=== PATIENT | male | born 1955 | race Caucasian/White ===

== ENCOUNTER 2016-11-22 20:22 | Emergency (ER) | payer BC, MEDICARE ==
[~2016-11-22] VITALS: Ht 177.8 cm; Wt 92.0 kg
[~2016-11-22 20:22] MED LIST: LEVE10007 PO; LISI5TAB7 PO; METF500T4 PO; TRAZ50TA18 PO
[2016-11-22 20:29] VITALS: BP 123/77
[2016-11-22] MEDS ORDERED: LIDOCAINE 1%, 20ML ONE (21:55)
[2016-11-22] MEDS ORDERED: LIDOCAINE 1%, 20ML SQ ONE (22:00)
[2016-11-22] MEDS ORDERED: BACITRACIN ZINC OINT 500U/GM, 0.9 GM ONE (23:13)
== END 2016-11-22 23:44 | disposition home or self-care (01) ==
LOC: ED 23:38
DX: S91.204A Unspecified open wound of right lesser toe(s) with damage to nail, initial encounter (principal); I10 Essential (primary) hypertension; E11.9 Type 2 diabetes mellitus without complications; X58.XXXA Exposure to other specified factors, initial encounter; Y93.89 Activity, other specified; Y92.009 Unspecified place in unspecified non-institutional (private) residence as the place of occurrence of the external cause; Y99.8 Other external cause status
CPT/HCPCS: 11730; 82962; 99284; J3490

== ENCOUNTER → 2016-12-03 | Outpatient (CLI) | payer MEDICARE | LOC: CFH 11:22 | PROVIDERS: ATTEND Internal Medicine | DX: Z02.9 Encounter for administrative examinations, unspecified (principal) ==

== ENCOUNTER 2019-05-25 16:27 | Emergency (ER) | payer MEDICARE ==
[~2019-05-25] VITALS: Ht 177.8 cm; Wt 89.8 kg
[~2019-05-25 16:27] MED LIST changes: +METF500T17 PO; -METF500T4 PO; -TRAZ50TA18 PO; +TRAZ50TA66 PO
[2019-05-25 17:04] LABS: MICROSCOPIC NOT IND
[2019-05-25 17:12] LABS: CULTURE INDICATED? NO
[2019-05-25] MEDS ORDERED: METFORMIN (17:31)
--- NOTE | 2019-05-25 17:32 | NUR ---
PT REPORTS RUQ ABD PAIN. VS STABLE. CALL LIGHT IN PLACE. REPORT GIVEN TO BLAISE SOTO
--- NOTE | 2019-05-25 17:42 | NUR ---
BEDSIDE REPORT GIVEN TO BLAISE SOTO. PLAN OF CARE DISCUSSED.
--- NOTE | 2019-05-25 17:43 | NUR ---
REPORT RECEIVED FROM ADÁN Hendricks RN AND ASSUMED PT CARE
[2019-05-25] MEDS ORDERED: ONDANSETRON 2MG/ML, 2ML IVPush ONE (18:30)
[2019-05-25] MEDS ORDERED: SODIUM CHLORIDE FLUSH 10ML SYR IVF ONE (18:30)
[2019-05-25] MEDS ORDERED: MORPHINE SULFATE 4 MG/ML, 1ML IVPush PRN (18:30)
[2019-05-25 18:34] LABS: BASOPHILS # (AUTO) 0.05 x10^3/uL (0-0.1); BASOPHILS % (AUTO) 1 % (0-1); EOSINOPHILS # (AUTO) 0.28 x10^3/uL (0-0.4); EOSINOPHILS % (AUTO) 3 % (1-7); LYMPHOCYTES # (AUTO) 3.36 x10^3/uL (1-3.4); LYMPHOCYTES % (AUTO) 38 % (22-44); MD NO; MEAN CORPUSCULAR HEMOGLOBIN 31.9 pg (27.5-34.5); MEAN CORPUSCULAR HGB CONC 32.4 g/dL (33.2-36.2); MEAN CORPUSCULAR VOLUME 98.5 fL (81-97); MONOCYTES # (AUTO) 1.05 x10^3/uL (0.2-0.8); MONOCYTES % (AUTO) 12 % (2-9); NEUTROPHILS # (AUTO) 4.22 x10^3/uL (1.8-6.8); NEUTROPHILS % (AUTO) 47 % (42-75); PLATELET COUNT 208 x10^3/uL (130-400); RED BLOOD COUNT 4.21 x10^6/uL (4.38-5.82); RED CELL DISTRIBUTION WIDTH 13.9 % (9.4-14.8)
[2019-05-25 18:42] LABS: ALBUMIN 3.7 g/dL (3.4-5.0); ANION GAP 6 mmol/L (5-15); CALCIUM 8.9 mg/dL (8.5-10.1); CHLORIDE 105 mmol/L (98-107)
[2019-05-25 18:47] LABS: ALANINE AMINOTRANSFERASE 24 U/L (12-78); ALKALINE PHOSPHATASE 41 U/L (45-117); BILIRUBIN,TOTAL 0.4 mg/dL (0.2-1.0); CREATININE 1.31 mg/dL (0.7-1.3); TOTAL PROTEIN 6.9 g/dL (6.4-8.2)
[2019-05-25 19:11] VITALS: BP 101/64
--- NOTE | 2019-05-25 19:12 | NUR ---
PT RESTING IN HOSPITAL BED. TV ON. CALL LIGHT WITHIN REACH. NO REQUESTS AT THIS TIME
== END 2019-05-25 19:29 | disposition home or self-care (01) ==
LOC: ED 19:11
DX: K80.70 Calculus of gallbladder and bile duct without cholecystitis without obstruction (principal); I10 Essential (primary) hypertension; E11.9 Type 2 diabetes mellitus without complications
CPT/HCPCS: 36415; 76700; 80053; 81003; 83690; 85025; 93005; 99284

== ENCOUNTER 2019-08-01 13:05 | Outpatient (CLI) | payer MEDICARE ==
[~2019-08-01 13:05] MED LIST changes: +METFORMIN
[2019-08-01] MEDS ORDERED: METF500T17 PO (13:42)
[2019-08-01] MEDS ORDERED: CALC-316 PO (13:42)
[2019-08-01] MEDS ORDERED: LISI-167 PO (13:42)
[2019-08-01] MEDS ORDERED: PIOG30TA68 PO (13:42)
== END 2019-08-01 23:59 | disposition home or self-care (01) ==
LOC: STAR 13:05
PROVIDERS: ATTEND Surgery
DX: Z02.9 Encounter for administrative examinations, unspecified (principal)

== ENCOUNTER 2019-08-06 06:46 | Day surgery (SDC) | payer MEDICARE ==
[~2019-08-06] VITALS: Ht 177.8 cm; Wt 89.0 kg
[~2019-08-06 06:46] MED LIST changes: +BUPIVACAINE/PF 0.25% ONE; +CALC-316 PO; +EPINEPHRINE 1 MG/ML, 1ML ONE; +FENTANYL PF 250 MCG/5ML ONE; +KETOROLAC 30 MG/1 ML ONE; +LISI-167 PO; +MIDAZOLAM 1 MG/ML, 2ML ONE; +PHENYLEPHRINE 10 MG/ML ONE; +PIOG30TA68 PO
[2019-08-06] MEDS ORDERED: CEFOTETAN PMX 2GM/50ML 50 ML ONE (06:49)
[2019-08-06] MEDS ORDERED: GABAPENTIN 300 MG CAPSULE PO STA (06:53)
[2019-08-06] MEDS ORDERED: NEOSTIGMINE 1 MG/ML, 10ML ONE (06:54)
[2019-08-06] MEDS ORDERED: GLYCOPYRROLATE 0.2MG/1ML, 5ML ONE (06:54)
[2019-08-06] MEDS ORDERED: CEFAZOLIN 1,000 MG ONE (06:54)
[2019-08-06] MEDS ORDERED: PROPOFOL 10 MG/ML, 20ML ONE (06:54)
[2019-08-06] MEDS ORDERED: ROCURONIUM 10MG/ML,5ML ONE (06:54)
[2019-08-06] MEDS ORDERED: ACETAMINOPHEN 500 MG TABLET PO ONE ×2 (07:00→07:30)
[2019-08-06 07:02] VITALS: BP 121/75
[2019-08-06] MEDS ORDERED: ONDANSETRON 2MG/ML, 2ML ONE (07:12)
[2019-08-06] MEDS ORDERED: LACTATED RINGERS 1,000 ML IV SCH (07:25)
[2019-08-06] MEDS ORDERED: LABETALOL 5MG/ML, 20ML IV PRN (07:30)
[2019-08-06] MEDS ORDERED: HYDROmorphone 2 MG/ML, 1ML IVPush PRN (07:30)
[2019-08-06] MEDS ORDERED: ONDANSETRON 2MG/ML, 2ML IV PRN (07:30)
[2019-08-06] MEDS ORDERED: MORPHINE SULFATE 4 MG/ML, 1ML IVPush PRN (07:30)
[2019-08-06] MEDS ORDERED: MEPERIDINE/PF 25MG/ML,1ML IVPush PRN (07:30)
[2019-08-06] MEDS ORDERED: GABAPENTIN 300 MG CAPSULE PO ONE (07:30)
[2019-08-06] MEDS ORDERED: FENTANYL PF 100 MCG/2ML IV PRN (07:30)
[2019-08-06] MEDS ORDERED: OXYcodone 5 MG/5 ML ORAL.SOL UDC PO PRN (07:30)
[2019-08-06] MEDS ORDERED: hydrALAzine 20 MG/ML, 1ML IV PRN (07:30)
[2019-08-06] MEDS ORDERED: OXYcodone 5 MG/5 ML ORAL.SOL UDC ONE (08:18)
[2019-08-06] MEDS ORDERED: FENTANYL PF 100 MCG/2ML ONE (08:18)
== END 2019-08-06 11:45 | disposition home or self-care (01) ==
LOC: OUT 06:46
PROVIDERS: ATTEND Surgery
DX: K80.10 Calculus of gallbladder with chronic cholecystitis without obstruction (principal); E11.9 Type 2 diabetes mellitus without complications; I10 Essential (primary) hypertension; Z87.891 Personal history of nicotine dependence; Z79.84 Long term (current) use of oral hypoglycemic drugs; Z79.899 Other long term (current) drug therapy
CPT/HCPCS: 47562; 82962; 88304; J0171; J0690; J1885; J2250; J2370; J2405; J2704; J2710; J3010; J3490; J7120